=== PATIENT | female | born 1950 | race African-American/Black ===

== ENCOUNTER 2017-03-29 05:27 | Emergency (ER) | payer BC ==
[~2017-03-29] VITALS: Ht 165.1 cm; Wt 60.0 kg
[~2017-03-29 05:27] MED LIST: METO25 PO; TRAM50 PO
[2017-03-29 05:30] VITALS: BP 203/93; PULSE 73; RESP 16; TEMP 98.2; O2SAT 97
[2017-03-29] MEDS ORDERED: SODIUM CHLOR 0.9% 1000 ML INJ 1,000 ML IV SCH (05:34)
[2017-03-29] MEDS ORDERED: FAMOTIDINE 20 MG/2 ML VIAL IV PUSH ONE (05:45)
[2017-03-29] MEDS ORDERED: SODIUM CHLORIDE 0.9% FLUSH 10 ML FLUSH IV FLUSH PRN (05:45)
[2017-03-29] MEDS ORDERED: DICYCLOMINE HCL 10 MG CAP PO ONE (05:45)
[2017-03-29] MEDS ORDERED: ONDANSETRON HCL 4 MG/2 ML VIAL IVP ONE (05:45)
--- NOTE | 2017-03-29 05:45 | PD ---
HPI Chief Complaint: abdominal pain Time Seen by Provider: 05:34 Travel History International Travel<30 days: No Contact w/Intl Traveler<30days: No History of Present Illness HPI 66 old woman presents to the emergency department complaining of abdominal pain. States symptoms started yesterday evening. In the mid epigastrium, nonradiating, associated with a little bit of vomiting this morning. She says she feels like she ate something bad. No diarrhea. She had a normal stool last night. N do states she's been urinating more frequently but no dysuria or other changes. No other complaints. No history of gallbladder problems. She does have a history of GERD and takes a PPI. History Past Medical History Narrative Medical GERD Menopausal: Yes : 4 Para: 4 Social History Alcohol Use: Yes (OCCASIONAL) Tobacco Use: No Allergies-Medications (Allergen,Severity, Reaction): Coded Allergies: No Known Allergies (Verified Adverse Reaction, Unknown, 03/29/17) Reported Meds & Prescriptions Reported Meds & Active Scripts Active Reported Metoprolol Tartrate 25 Mg Tab 25 Mg PO DAILY D3 Super Strength (Cholecalciferol) 2,000 Unit Cap 2,000 Units PO DAILY Montelukast (Montelukast Sodium) 10 Mg Tab 10 Mg PO HS Protonix (Pantoprazole Sodium) 40 Mg Tab 40 Mg PO DAILY Estradiol 1 Mg Tab 1 Mg PO DAILY Review of Systems Except as stated in HPI: all other systems reviewed are Neg Physical Exam Narrative GENERAL: Well-appearing 66 old woman, no acute distress. SKIN: Focused skin assessment warm/dry. HEAD: Atraumatic. Normocephalic. EYES: Pupils equal and round. No scleral icterus. No injection or drainage. CARDIOVASCULAR: Regular rate and rhythm. No murmur appreciated. RESPIRATORY: No accessory muscle use. Clear to auscultation. Breath sounds equal bilaterally. GASTROINTESTINAL: Abdomen soft soft, mild epigastric tenderness, no rebound or guarding. MUSCULOSKELETAL: No obvious deformities. No clubbing. No cyanosis. No edema. NEUROLOGICAL: Awake and alert. No obvious cranial nerve deficits. Motor grossly within normal limits. Normal speech. PSYCHIATRIC: Appropriate mood and affect; insight and judgment normal. Data Data Last Documented VS Vital Signs Date Time Temp Pulse Resp B/P (MAP) Pulse Ox O2 Delivery O2 Flow Rate FiO2 03/29/17 05:30 98.2 73 16 203/93 (129) 97 Orders Orders Complete Blood Count With Diff (03/29/17 05:34) Comprehensive Metabolic Panel (03/29/17 05:34) Lipase (03/29/17 05:34) Urinalysis - C+S If Indicated (03/29/17 05:34) Iv Access Insert/Monitor (03/29/17 05:34) Ondansetron Inj (Zofran Inj) (03/29/17 05:45) Sodium Chlor 0.9% 1000 Ml Inj (Ns 1000 M (03/29/17 05:34) Sodium Chloride 0.9% Flush (Ns Flush) (03/29/17 05:45) Famotidine Inj (Pepcid Inj) (03/29/17 05:45) Dicyclomine (Bentyl) (03/29/17 05:45) Labs Laboratory Tests Test 03/29/17 05:30 03/29/17 05:43 White Blood Count 7.5 TH/MM3 Red Blood Count 4.58 MIL/MM3 Hemoglobin 13.6 GM/DL Hematocrit 39.9 % Mean Corpuscular Volume 87.0 FL Mean Corpuscular Hemoglobin 29.6 PG Mean Corpuscular Hemoglobin Concent 34.0 % Red Cell Distribution Width 14.6 % Platelet Count 272 TH/MM3 Mean Platelet Volume 8.5 FL Neutrophils (%) (Auto) 56.0 % Lymphocytes (%) (Auto) 31.9 % Monocytes (%) (Auto) 7.4 % Eosinophils (%) (Auto) 4.1 % Basophils (%) (Auto) 0.6 % Neutrophils # (Auto) 4.2 TH/MM3 Lymphocytes # (Auto) 2.4 TH/MM3 Monocytes # (Auto) 0.6 TH/MM3 Eosinophils # (Auto) 0.3 TH/MM3 Basophils # (Auto) 0.0 TH/MM3 CBC Comment DIFF FINAL Differential Comment Blood Urea Nitrogen 15 MG/DL Creatinine 0.96 MG/DL Random Glucose 131 MG/DL Total Protein 7.6 GM/DL Albumin 3.8 GM/DL Calcium Level 8.9 MG/DL Alkaline Phosphatase 59 U/L Aspartate Amino Transf (AST/SGOT) 24 U/L Alanine Aminotransferase (ALT/SGPT) 21 U/L Total Bilirubin 0.6 MG/DL Sodium Level 138 MEQ/L Potassium Level 3.6 MEQ/L Chloride Level 102 MEQ/L Carbon Dioxide Level 28.1 MEQ/L Anion Gap 8 MEQ/L Estimat Glomerular Filtration Rate 71 ML/MIN Lipase 171 U/L Urine Color LIGHT-YELLOW Urine Turbidity CLEAR Urine pH 6.5 Urine Specific Walker 1.010 Urine Protein NEG mg/dL Urine Glucose (UA) NEG mg/dL Urine Ketones NEG mg/dL Urine Occult Blood NEG Urine Nitrite NEG Urine Bilirubin NEG Urine Urobilinogen LESS THAN 2.0 MG/DL Urine Leukocyte Esterase NEG Urine WBC LESS THAN 1 /hpf Urine Squamous Epithelial Cells 1 /hpf Urine Bacteria RARE /hpf Microscopic Urinalysis Comment CULT NOT INDICATED MDM Medical Decision Making Medical Screen Exam Complete: Yes Emergency Medical Condition: Yes Interpretation(s) LABS: CBC is unremarkable. CMP is unremarkable. Lipase is normal. UA unremarkable. Differential Diagnosis Gastritis, pancreatitis, peptic ulcer disease, cholecystitis, biliary colic, other Narrative Course Medical decision making INITIAL: 66 old woman presents to the emergency department complaining of epigastric pain. Seems likely gastritis or reflux. Looks overall well. No significant right upper quadrant tenderness evidence of hepatobiliary disease. We'll check labs. Given the frequency we'll check urinalysis. Supportive treatment PPIs, Bentyl. Likely discharge for outpatient follow-up. Diagnosis Primary Impression: Gastritis Additional Instructions: Continue Protonix as prescribed. He sucralfate in addition to proptotic for gastritis. Return to the emergency department for any new or worsening symptoms. Follow up with her primary doctor in the next 2-4 days. Med/Other Pt SpecificInfo: Prescription(s) given Scripts Sucralfate (Sucralfate) 1 Gram Tab 1 GM PO TID for Duodenal ulcer, #90 TAB 0 Refills on empty stomach Prov: Mundo Morales MD 03/29/17 Disposition: DISCHARGE HOME Condition: Stable Mundo Morales MD Mar 29, 2017 05:45
[2017-03-29] MEDS ORDERED: D200CAP PO (05:46)
[2017-03-29] MEDS ORDERED: METO25TA3 PO (05:46)
[2017-03-29] MEDS ORDERED: MONT10TA4 PO (05:46)
[2017-03-29] MEDS ORDERED: PROT40TA PO (05:46)
[2017-03-29] MEDS ORDERED: ESTR1TAB PO (05:46)
[2017-03-29 05:48] LABS: AUTOMATED NEUTROPHIL # 4.2 TH/MM3 (1.8-7.7); BASOPHIL % 0.6 % (0.0-2.0); EOSINOPHIL # 0.3 TH/MM3 (0-0.4); EOSINOPHIL % 4.1 % (0.0-4.0); HEMATOCRIT 39.9 % (35.0-46.0); HEMOGLOBIN 13.6 GM/DL (11.6-15.3); LYMPH % 31.9 % (9.0-44.0); LYMPHOCYTE # 2.4 TH/MM3 (1.0-4.8); MEAN CORPUSCULAR HEMOGLOBIN 29.6 PG (27.0-34.0); MEAN PLATELET VOLUME 8.5 FL (7.0-11.0); MONO % 7.4 % (0.0-8.0); MONOCYTE # 0.6 TH/MM3 (0-0.9); PLATELET COUNT 272 TH/MM3 (150-450); RED BLOOD COUNT 4.58 MIL/MM3 (4.00-5.30); RED CELL DISTRIBUTION WIDTH 14.6 % (11.6-17.2); WHITE BLOOD COUNT 7.5 TH/MM3 (4.0-11.0)
[2017-03-29 05:50] LABS: BACTERIA, URINE RARE /hpf; BILIRUBIN, URINE NEG (NEG); BLOOD, URINE NEG (NEG); GLUCOSE,URINE NEG (NEG); KETONE, URINE NEG (NEG); NITRITE,URINE NEG (NEG); PH, URINE 6.5 (5.0-8.5); SQUAMOUS EPITHELIAL CELL URINE 1 /hpf (0-5); URINE COLOR LIGHT-YELLOW (YELLW/STRAW); URINE LEUKOCYTE ESTERASE NEG (NEG)
[2017-03-29 06:11] LABS: ALBUMIN 3.8 GM/DL (3.4-5.0); AST (GOT) 24 U/L (15-37); BICARBONATE 28.1 MEQ/L (21.0-32.0); BLOOD UREA NITROGEN 15 MG/DL (7-18); CALCIUM 8.9 MG/DL (8.5-10.1); CHLORIDE 102 MEQ/L (98-107); CREATININE 0.96 MG/DL (0.50-1.00); GLOMERULAR FILTRATION RATE 71 ML/MIN (>89); GLUCOSE,RANDOM 131 MG/DL (74-106); LIPASE 171 U/L (73-393); SODIUM (NA) 138 MEQ/L (136-145)
[2017-03-29 06:13] LABS: ALT (GPT) 21 U/L (10-53)
[2017-03-29 06:15] LABS: ALKALINE PHOSPHATASE 59 U/L (45-117); TOTAL BILIRUBIN ADULT 0.6 MG/DL (0.2-1.0); TOTAL PROTEIN 7.6 GM/DL (6.4-8.2)
[2017-03-29] MEDS ORDERED: SUCR1TAB PO (06:30)
[2017-03-29] MEDS ORDERED: traMADol HCL 50 MG TAB PO ONE (06:45)
[2017-03-29] MEDS ORDERED: ONDANSETRON ODT 4 MG TAB PO ONE (07:00)
== END 2017-03-29 07:30 | disposition home or self-care (01) ==
LOC: NEPE 05:27
DX: K29.70 Gastritis, unspecified, without bleeding (principal); K21.9 Gastro-esophageal reflux disease without esophagitis
CPT/HCPCS: 80053; 81001; 83690; 85025; 96374; 96375; 99283; J2405; J7030